=== PATIENT | female | born 1960 | race Caucasian/White ===

== ENCOUNTER 2016-09-21 10:35 | Emergency (ER) | payer BC ==
[~2016-09-21] VITALS: Ht 172.7 cm; Wt 61.4 kg
[~2016-09-21 10:35] MED LIST: DHEA 10 MG TAB1 EACH TOP; PREMARIN .3MG0.3 MG; VALTREX1 GM PO; ZOVIRAX CREAM3 GM TP; ZOVIRAX400 MG PO
[2016-09-21 10:43] VITALS: BP 134/80; PULSE 69; TEMP 98.6
[2016-09-21] MEDS ORDERED: VALTREX 50500 MG/TAB PO (10:55)
[2016-09-21] MEDS ORDERED: DOXYCYCLINE 10100 MG PO (11:06)
== END 2016-09-21 11:12 | disposition home or self-care (01) ==
LOC: COL.ER 10:35
DX: L08.9 Local infection of the skin and subcutaneous tissue, unspecified (principal)

== ENCOUNTER 2016-09-26 17:55 | Emergency (ER) | payer BC ==
[~2016-09-26] VITALS: Ht 172.7 cm; Wt 63.6 kg
[~2016-09-26 17:55] MED LIST changes: +DOXYCYCLINE 10100 MG PO; +VALTREX 50500 MG/TAB PO
[2016-09-26 18:01] VITALS: TEMP 99
[2016-09-26 18:48] LABS: BASO % 0.1 % (0.0-2.0); GRAN # 7.9 (1.4-6.5); GRAN % 86.2 % (42.2-75.2); HEMATOCRIT 40.5 % (37.0-47.0); HEMOGLOBIN 13.7 g/dl (12.5-16.0); LYMPH # 0.9 (1.2-3.4); LYMPH % 9.3 % (20.0-51.0); MEAN CELL VOLUME 95 fl (80.0-100.0); MEAN CORPUSCULAR HEMOGLOBIN 32 pg (27.0-31.0); MEAN CORPUSCULAR HGB CONC 34 g/dl (33.0-37.0); MEAN PLATELET VOLUME 10.1 fl (7.4-10.4); MONO # 0.4 (0.1-0.6); MONO % 4.1 % (1.7-9.3); PLATELET COUNT 239 K/mm3 (130-400); RED BLOOD COUNT 4.27 M/mm3 (4.10-5.30); REDCELL DISTRIBUTION WIDTH-CV 12.7 % (11.5-14.5); WHITE BLOOD COUNT 9.2 K/mm3 (4.8-10.8)
[2016-09-26 18:56] LABS: PH 5 (5-8); SQUAMOUS EPITHELIAL 0-2 /hpf; URINE APPEARANCE Clear; URINE BACTERIA None Seen /hpf; URINE BILIRUBIN Negative (NEGATIVE); URINE BLOOD 1+ (NEGATIVE); URINE COLOR Straw; URINE GLUCOSE Negative (NEGATIVE); URINE KETONE 1+ (NEGATIVE); URINE RBC None Seen /hpf; URINE UROBILINOGEN Negative (NEGATIVE); URINE WBC 0-2 /hpf
[2016-09-26 19:02] LABS: ADJUSTED CALCIUM 9.2 mg/dL (8.4-10.2); ALBUMIN 4.5 gm/dL (3.5-5.0); BILIRUBIN,TOTAL 0.8 mg/dL (0.0-1.0); C-REACTIVE PROTEIN 0.7 mg/dL (0.0-0.9); CALCIUM 9.6 mg/dL (8.4-10.2); CREATININE, serum 0.88 mg/dL (0.52-1.25); POTASSIUM 3.6 mmol/L (3.4-5.0); TOTAL PROTEIN 7.3 gm/dL (6.4-8.2)
[2016-09-26] MEDS ORDERED: CLEOCIN HCL300 MG PO (19:20)
[2016-09-26] MEDS ORDERED: ZOFRAN 4MG T4 MG/TAB PO (19:20)
[2016-09-26 19:40] VITALS: BP 130/84; PULSE 70
== END 2016-09-26 19:42 | disposition home or self-care (01) ==
LOC: COL.ER 17:55
PROVIDERS: Emergency Medicine
DX: R51 Headache (principal); L03.012 Cellulitis of left finger; R30.0 Dysuria; R11.2 Nausea with vomiting, unspecified; Z88.2 Allergy status to sulfonamides; K21.9 Gastro-esophageal reflux disease without esophagitis; L98.9 Disorder of the skin and subcutaneous tissue, unspecified
CPT/HCPCS: J1885; J2405; J7030

== ENCOUNTER → 2019-05-21 | Outpatient (CLI) | payer BC ==
[~2019-05-21] MED LIST changes: +CLEOCIN HCL300 MG PO; +ZOFRAN 4MG T4 MG/TAB PO
== END ==
LOC: COL.PUL 07:38
DX: J40 Bronchitis, not specified as acute or chronic (principal)

== ENCOUNTER → 2019-07-10 | Outpatient (CLI) | payer BC | LOC: COL.LAB 10:58 | DX: Z01.89 Encounter for other specified special examinations (principal) ==

== ENCOUNTER → 2019-07-10 | Outpatient (CLI) | payer BC | LOC: MC.RAD 13:24 | DX: Z12.31 Encounter for screening mammogram for malignant neoplasm of breast (principal) ==

== ENCOUNTER → 2024-03-17 | Outpatient (CLI) | payer BC | LOC: MC.RAD 14:22 | DX: Z12.31 Encounter for screening mammogram for malignant neoplasm of breast (principal) ==